=== PATIENT | female | born 1965 | race Caucasian/White ===

== ENCOUNTER 2019-05-23 19:25 | Inpatient (IN) ==
[2019-05-23 20:00] LABS: Basophils % 0.5 % (0.0-0.8); Eosinophils # 0.2 10*3/uL (0.0-0.87); Eosinophils % 3.2 % (0.00-10.9); Hematocrit 39.4 VOL% (35.7-47.0); Hemoglobin 12.9 GM/DL (12.0-16.0); Immature Granulocytes % 0.3 %; Immature Granulocytes Absolute 0.02 #; Lymphocytes # 2.3 10*3/uL (1.4-4.0); Mean Corpuscular HGB Conc 32.7 GM/DL (32-36); Mean Platelet Volume 9.5 FL (9.6-12.0); Monocytes % 8.4 % (1.7-12.7); Neutrophils % 56.6 % (38.7-73.9); Platelet Count 263 T/CUMM (130-400); Red Blood Count 4.58 MC/CUMM (3.8-5.5); Red Cell Distribution Width 15.4 % (9.3-17.3); White Blood Count 7.5 T/CUMM (4-12)
[2019-05-23] MEDS ORDERED: VANCOMYCIN INJ 1,000 MG in SODIUM CHLORIDE 0.9% 250 ML IV STA (20:02)
[2019-05-23 20:31] LABS: Alanine Aminotransferase 30 U/L (13-56); Albumin 3.4 G/DL (3.4-5.0); Alkaline Phosphatase 94 U/L (45-117); Aspartate Amino Transferase 23 U/L (0-37); Bilirubin,Total < 0.39 MG/DL (0.2-1.0); Blood Urea Nitrogen 16 MG/DL (7-18); Calcium 8.2 MG/DL (8.5-10.1); Estimated Glom Filtration Rate 84 ML/MIN; Glucose 112 MG/DL (74-106); Osmolality,Calculated 276.7 MOS/KG (273-304); Total Protein 6.6 G/DL (6.4-8.3)
[2019-05-23] MEDS ORDERED: ONDANSETRON 4 MG/2 ML VIAL IV ONE (21:14)
[2019-05-23] MEDS ORDERED: MORPHINE 4 MG/1 ML VIAL IV STA (21:14)
[2019-05-23] MEDS ORDERED: MORPHINE 4 MG/1 ML VIAL SUBCUT PRN (23:29)
[2019-05-23] MEDS ORDERED: ALBUTEROL 1.25 MG/3 ML NEB RESP TX PRN (23:29)
[2019-05-24] MEDS: ONDANSETRON 4 MG/2 ML VIAL IV PRN ×5 (00:40→22:28)
[2019-05-24] MEDS: PIPERACILLIN/TAZOBACTAM 3,375 MG in SODIUM CHLORIDE 0.9% 100 ML IV SCH ×2 (00:44→12:12)
[2019-05-24] MEDS: NICOTINE 14 MG/24 HR PATCH TRANSDERM SCH (01:02)
[2019-05-24] MEDS: MORPHINE 4 MG/1 ML VIAL IV PRN ×5 (01:16→22:27)
[2019-05-24 04:45] LABS: Basophils % 0.7 % (0.0-0.8); Eosinophils # 0.3 10*3/uL (0.0-0.87); Eosinophils % 5.2 % (0.00-10.9); Hematocrit 34.7 VOL% (35.7-47.0); Hemoglobin 11.1 GM/DL (12.0-16.0); Immature Granulocytes % 0.5 %; Immature Granulocytes Absolute 0.03 #; Lymphocytes # 2.1 10*3/uL (1.4-4.0); Lymphocytes % 36.7 % (21.3-54.2); Mean Corpuscular Volume 86.3 FL (87-102); Mean Platelet Volume 9.6 FL (9.6-12.0); Monocytes % 9.4 % (1.7-12.7); Neutrophils % 47.5 % (38.7-73.9); Platelet Count 240 T/CUMM (130-400); Red Blood Count 4.02 MC/CUMM (3.8-5.5); Red Cell Distribution Width 15.4 % (9.3-17.3); White Blood Count 5.6 T/CUMM (4-12)
[2019-05-24 05:09] LABS: Albumin 2.9 G/DL (3.4-5.0); Bilirubin,Total 0.5 MG/DL (0.2-1.0); Calcium 8.5 MG/DL (8.5-10.1); Osmolality,Calculated 286.8 MOS/KG (273-304)
[2019-05-24] MEDS ORDERED: VANCOMYCIN INJ 1,750 MG in SODIUM CHLORIDE 0.9% 500 ML IV SCH (08:00)
[2019-05-24] MEDS: PANTOPRAZOLE 40 MG TABLET PO SCH (08:56)
[2019-05-24] MEDS: MONTELUKAST 10 MG TABLET PO SCH (08:56)
[2019-05-24] MEDS: FLUoxetine 20 MG CAPSULE PO SCH (08:57)
[2019-05-24] MEDS ORDERED: LOSARTAN 50 MG TABLET PO SCH (09:00)
[2019-05-24] MEDS: RIVAROXABAN PO SCH ×2 (10:16→17:41)
[2019-05-24] MEDS: ceFAZolin 1,000 MG in SYRINGE 1 EACH IV SCH (17:35)
[2019-05-24] MEDS: FLUTICASONE 50 MCG NASAL SPRAY 16 GM BOTTLE BOTH NARES SCH (20:31)
[2019-05-25] MEDS: ceFAZolin 1,000 MG in SYRINGE 1 EACH IV SCH ×4 (00:44→17:51)
[2019-05-25 05:02] LABS: Basophils % 0.6 % (0.0-0.8); Eosinophils # 0.3 10*3/uL (0.0-0.87); Eosinophils % 5.7 % (0.00-10.9); Hematocrit 36.4 VOL% (35.7-47.0); Hemoglobin 11.5 GM/DL (12.0-16.0); Immature Granulocytes % 0.4 %; Immature Granulocytes Absolute 0.02 #; Lymphocytes # 2.1 10*3/uL (1.4-4.0); Lymphocytes % 40.2 % (21.3-54.2); Mean Corpuscular HGB Conc 31.6 GM/DL (32-36); Mean Corpuscular Volume 87.3 FL (87-102); Mean Platelet Volume 9.5 FL (9.6-12.0); Monocytes % 9.9 % (1.7-12.7); Neutrophils % 43.2 % (38.7-73.9); Platelet Count 242 T/CUMM (130-400); Red Blood Count 4.17 MC/CUMM (3.8-5.5); Red Cell Distribution Width 15.8 % (9.3-17.3); White Blood Count 5.3 T/CUMM (4-12)
[2019-05-25 05:27] LABS: Calcium 8.6 MG/DL (8.5-10.1); Osmolality,Calculated 287.8 MOS/KG (273-304)
[2019-05-25] MEDS: PANTOPRAZOLE 40 MG TABLET PO SCH (08:20)
[2019-05-25] MEDS: NICOTINE 14 MG/24 HR PATCH TRANSDERM SCH (08:20)
[2019-05-25] MEDS: MONTELUKAST 10 MG TABLET PO SCH (08:20)
[2019-05-25] MEDS: FLUoxetine 20 MG CAPSULE PO SCH (08:20)
[2019-05-25] MEDS: RIVAROXABAN PO SCH ×2 (08:22→17:51)
[2019-05-25] MEDS: ONDANSETRON 4 MG/2 ML VIAL IV PRN ×2 (10:11→22:17)
[2019-05-25] MEDS ORDERED: FUROSEMIDE 40 MG TABLET PO ONE (14:10)
[2019-05-25] MEDS: POLYETHYLENE GLYCOL POWDER 17 GM PACK PO SCH (14:25)
[2019-05-25] MEDS: FLUTICASONE 50 MCG NASAL SPRAY 16 GM BOTTLE BOTH NARES SCH (20:36)
[2019-05-25] MEDS: MORPHINE 4 MG/1 ML VIAL IV PRN (22:14)
[2019-05-26] MEDS: ceFAZolin 1,000 MG in SYRINGE 1 EACH IV SCH ×2 (00:38→09:04)
[2019-05-26] MEDS: MORPHINE 4 MG/1 ML VIAL IV PRN (00:54)
[2019-05-26 06:24] LABS: Basophils % 0.5 % (0.0-0.8); Eosinophils # 0.3 10*3/uL (0.0-0.87); Eosinophils % 5.5 % (0.00-10.9); Hematocrit 35.7 VOL% (35.7-47.0); Hemoglobin 11.5 GM/DL (12.0-16.0); Immature Granulocytes % 0.4 %; Immature Granulocytes Absolute 0.02 #; Lymphocytes # 2.3 10*3/uL (1.4-4.0); Lymphocytes % 41.6 % (21.3-54.2); Mean Corpuscular HGB Conc 32.2 GM/DL (32-36); Mean Corpuscular Volume 86.2 FL (87-102); Mean Platelet Volume 9.8 FL (9.6-12.0); Monocytes % 7.7 % (1.7-12.7); Neutrophils % 44.3 % (38.7-73.9); Platelet Count 256 T/CUMM (130-400); Red Blood Count 4.14 MC/CUMM (3.8-5.5); Red Cell Distribution Width 15.5 % (9.3-17.3); White Blood Count 5.6 T/CUMM (4-12)
[2019-05-26 06:45] LABS: Calcium 8.9 MG/DL (8.5-10.1); Osmolality,Calculated 287.7 MOS/KG (273-304)
[2019-05-26 09:04] VITALS: BP 121/63
[2019-05-26] MEDS: FLUoxetine 20 MG CAPSULE PO SCH (09:04)
[2019-05-26] MEDS: MONTELUKAST 10 MG TABLET PO SCH (09:04)
[2019-05-26] MEDS: NICOTINE 14 MG/24 HR PATCH TRANSDERM SCH (09:04)
[2019-05-26] MEDS: PANTOPRAZOLE 40 MG TABLET PO SCH (09:04)
[2019-05-26] MEDS: POLYETHYLENE GLYCOL POWDER 17 GM PACK PO SCH (09:04)
[2019-05-26] MEDS: RIVAROXABAN PO SCH (09:05)
== END 2019-05-26 11:20 | disposition home or self-care (01) | DRG 300 ==
LOC: N.ED 19:25 → N.EDINP 21:57 → N.3E 22:59
PROVIDERS: ADMIT Internal Medicine; ATTEND Internal Medicine

== ENCOUNTER 2020-02-11 05:27 | Inpatient (IN) ==
[2020-02-11] MEDS ORDERED: VANCOMYCIN INJ 1,000 MG in SODIUM CHLORIDE 0.9% 250 ML IV ONE (05:28)
[2020-02-11] MEDS ORDERED: LACTATED RINGERS 1,000 ML IV SCH (05:30)
[2020-02-11] MEDS ORDERED: VANCOMYCIN 1,000 MG VIAL ONE (05:47)
[2020-02-11] MEDS ORDERED: ceFAZolin 1,000 MG VIAL ONE (05:47)
[2020-02-11] MEDS ORDERED: ACETAMINOPHEN 500 MG TABLET PO STA (06:37)
[2020-02-11] MEDS ORDERED: GABAPENTIN 400 MG CAPSULE PO ONE (06:37)
[2020-02-11] MEDS ORDERED: FAMOTIDINE 20 MG TABLET PO STA (06:38)
[2020-02-11] MEDS ORDERED: DIAZEPAM 5 MG TABLET PO ONE (06:38)
[2020-02-11] MEDS ORDERED: ACETAMINOPHEN 500 MG TABLET ONE (06:46)
[2020-02-11] MEDS ORDERED: FAMOTIDINE 20 MG TABLET ONE (06:46)
[2020-02-11] MEDS ORDERED: TRANEXAMIC ACID 1,000 MG/10 ML VIAL ONE ×2 (06:48→09:39)
[2020-02-11] MEDS ORDERED: BACITRACIN OINT 0.9 GM PACK TOP ONE (06:48)
[2020-02-11] MEDS ORDERED: SCOPOLAMINE 1.5 MG PATCH TRANSDERM STA (06:52)
[2020-02-11] MEDS ORDERED: ROPIVACAINE 0.5% 30 ML VIAL ONE (07:32)
[2020-02-11] MEDS ORDERED: DEXAMETHASONE 4 MG/1 ML VIAL ONE ×2 (07:32→10:40)
[2020-02-11] MEDS ORDERED: FLUTICASONE FUROATE 50 MCG INH PRN (08:43)
[2020-02-11] MEDS ORDERED: ALBUTEROL 2.5 MG/3 ML NEB RESP TX PRN (08:43)
[2020-02-11] MEDS ORDERED: MAGNESIUM HYDROXIDE SUSP 30 ML UDCUP PO PRN (08:44)
[2020-02-11] MEDS ORDERED: diphenhydrAMINE CAP 25 MG CAPSULE PO PRN (08:44)
[2020-02-11] MEDS ORDERED: ZALEPLON 5 MG CAPSULE PO PRN (08:44)
[2020-02-11] MEDS ORDERED: ONDANSETRON 4 MG/2 ML VIAL IV PRN ×2 (08:44→10:48)
[2020-02-11] MEDS ORDERED: MORPHINE 4 MG/1 ML VIAL IV PRN ×2 (08:44)
[2020-02-11] MEDS ORDERED: BETAMETH SODIUM PHOS/ACETATE 30 MG/5 ML VIAL ONE (08:58)
[2020-02-11] MEDS ORDERED: BUPIVACAINE MPF 0.25% 30 ML VIAL ONE (08:59)
[2020-02-11] MEDS ORDERED: propofoL 200 MG/20 ML VIAL IV ONE (10:38)
[2020-02-11] MEDS ORDERED: SEVOFLURANE 1 UNIT/15 MINUTE INH ONE (10:39)
[2020-02-11] MEDS ORDERED: BUPIVACAINE SPINAL 0.75% 2 ML AMP SPINAL ONE (10:39)
[2020-02-11] MEDS ORDERED: fentaNYL 100 MCG/2 ML VIAL ONE (10:39)
[2020-02-11] MEDS ORDERED: MIDAZOLAM 2 MG/2 ML VIAL ONE ×2 (10:39)
[2020-02-11] MEDS ORDERED: PHENYLEPHRINE 1 MG/10 ML SYRINGE IV ONE (10:40)
[2020-02-11] MEDS ORDERED: KETOROLAC 30 MG/1 ML VIAL ONE (10:40)
[2020-02-11] MEDS ORDERED: ePHEDrine 50 MG/ML VIAL ONE (10:40)
[2020-02-11] MEDS ORDERED: ETOMIDATE 40 MG/20 ML VIAL IV ONE (10:40)
[2020-02-11] MEDS ORDERED: ONDANSETRON 4 MG/2 ML VIAL ONE ×2 (10:40→10:43)
[2020-02-11] MEDS ORDERED: GLYCOPYRROLATE 0.4 MG/2 ML VIAL ONE (10:40)
[2020-02-11] MEDS ORDERED: ROCURONIUM 100 MG/10 ML VIAL IV ONE (10:41)
[2020-02-11] MEDS ORDERED: NEOSTIGMINE 10 MG/10 ML VIAL ONE (10:41)
[2020-02-11] MEDS ORDERED: LACTATED RINGERS 1,000 ML IV ONE (10:41)
[2020-02-11] MEDS ORDERED: SODIUM CHLORIDE 0.9% 250 ML IV ONE (10:41)
[2020-02-11] MEDS ORDERED: LIDOCAINE 2% 5 ML VIAL ONE (10:41)
[2020-02-11] MEDS ORDERED: HYDROmorphone 2 MG/1 ML VIAL ONE (10:43)
[2020-02-11] MEDS ORDERED: MEPERIDINE 25 MG/1 ML VIAL IV PRN (10:48)
[2020-02-11] MEDS ORDERED: HYDROmorphone 2 MG/1 ML VIAL IV PRN (10:48)
[2020-02-11] MEDS ORDERED: DEXMEDETOMIDINE 200 MCG/2 ML VIAL ONE (10:50)
[2020-02-11] MEDS ORDERED: LORazepam 2 MG/1 ML VIAL IV PRN (10:50)
[2020-02-11 10:53] LABS: Apearance,Urine CLOUDY (Clear); Bacteria,Urine Occasional /HPF (Few); Bilirubin,Urine Negative (Negative); Blood, Urine Negative (Negative); Glucose,Urine (UA) Negative (Negative); Hyaline Casts,Urine 7 /LPF (0-3); Ketones,Urine Negative (Negative); Mucus,Urine Many /LPF (Occasional); Nitrite,Urine Negative (Negative); Protein,Urine Negative; RBC,Urine 1 /HPF (0-4); Squamous Epithelial Cell,Urine Moderate /HPF (0-10); Urine Color Yellow (Yellow); Urine Specific Gravity 1.028 (1.001-1.035); Urine Urobilinogen < 2.0 EU/DL (0.2-1.0); WBC,Urine 1 /HPF (0-6)
[2020-02-11] MEDS ORDERED: LORazepam 2 MG/1 ML VIAL ONE (11:04)
[2020-02-11] MEDS: LACTATED RINGERS 1,000 ML IV SCH ×2 (15:27→20:08)
[2020-02-11] MEDS: MONTELUKAST 10 MG TABLET PO SCH (15:32)
[2020-02-11] MEDS: DOCUSATE SODIUM 100 MG CAPSULE PO SCH ×2 (15:32→20:08)
[2020-02-11] MEDS: PANTOPRAZOLE 40 MG TABLET PO SCH (15:32)
[2020-02-11] MEDS: LOSARTAN 50 MG TABLET PO SCH (15:32)
[2020-02-11] MEDS: GABAPENTIN 400 MG CAPSULE PO SCH (15:32)
[2020-02-11] MEDS: KETOROLAC 30 MG/1 ML VIAL IV SCH ×3 (15:33→20:10)
[2020-02-11] MEDS: ceFAZolin 2,000 MG in PREMIX 1 EACH IV SCH ×2 (15:37→20:20)
[2020-02-11] MEDS: FLUTICASONE 50 MCG NASAL SPRAY 16 GM BOTTLE BOTH NARES SCH (20:10)
[2020-02-11] MEDS: RIVAROXABAN 10 MG TABLET PO SCH (20:12)
[2020-02-12] MEDS: ALPRAZolam 0.5 MG TABLET PO PRN ×2 (00:08→23:38)
[2020-02-12] MEDS: LACTATED RINGERS 1,000 ML IV SCH (00:10)
[2020-02-12] MEDS: KETOROLAC 30 MG/1 ML VIAL IV SCH (02:14)
[2020-02-12 05:07] LABS: Hematocrit 31.5 VOL% (35.7-47.0); Hemoglobin 10.4 GM/DL (12.0-16.0); Immature Granulocytes % 0.3 %; Immature Granulocytes Absolute 0.03 #; Lymphocytes # 0.9 10*3/uL (1.4-4.0); Lymphocytes % 8.5 % (21.3-54.2); Mean Corpuscular Volume 86.1 FL (87-102); Monocytes % 2.3 % (1.7-12.7); Neutrophils % 88.9 % (38.7-73.9); Platelet Count 210 T/CUMM (130-400); Red Blood Count 3.66 MC/CUMM (3.8-5.5); Red Cell Distribution Width 14.6 % (9.3-17.3); White Blood Count 10.4 T/CUMM (4-12)
[2020-02-12 05:30] LABS: Calcium 8.4 MG/DL (8.5-10.1); Osmolality,Calculated 280.5 MOS/KG (273-304)
[2020-02-12] MEDS ORDERED: DEXTROSE 50% 25 GM/50 ML VIAL IV PRN (06:33)
[2020-02-12] MEDS ORDERED: GLUCAGON 1 MG VIAL IM PRN (06:33)
[2020-02-12] MEDS: INSULIN LISPRO 100 UNIT/ML SUBCUT SCH ×4 (08:04→20:52)
[2020-02-12] MEDS: GABAPENTIN 400 MG CAPSULE PO SCH (08:42)
[2020-02-12] MEDS: DOCUSATE SODIUM 100 MG CAPSULE PO SCH ×2 (08:42→20:51)
[2020-02-12] MEDS: PANTOPRAZOLE 40 MG TABLET PO SCH (08:42)
[2020-02-12] MEDS: CELECOXIB 200 MG CAPSULE PO SCH (08:42)
[2020-02-12] MEDS: LOSARTAN 50 MG TABLET PO SCH (08:43)
[2020-02-12] MEDS: FLUoxetine 20 MG CAPSULE PO SCH (08:43)
[2020-02-12] MEDS: MONTELUKAST 10 MG TABLET PO SCH (08:43)
[2020-02-12] MEDS: RIVAROXABAN 10 MG TABLET PO SCH (08:43)
[2020-02-12] MEDS: PHENAZOPYRIDINE 95 MG TABLET PO SCH ×2 (11:42→17:40)
[2020-02-12] MEDS: FLUTICASONE 50 MCG NASAL SPRAY 16 GM BOTTLE BOTH NARES SCH (20:53)
[2020-02-13 04:14] LABS: Hematocrit 28.7 VOL% (35.7-47.0); Hemoglobin 9.1 GM/DL (12.0-16.0); Immature Granulocytes % 0.5 %; Immature Granulocytes Absolute 0.06 #; Lymphocytes # 1.8 10*3/uL (1.4-4.0); Lymphocytes % 15.8 % (21.3-54.2); Mean Corpuscular HGB Conc 31.7 GM/DL (32-36); Mean Corpuscular Volume 88.9 FL (87-102); Mean Platelet Volume 9.9 FL (9.6-12.0); Monocytes % 5.3 % (1.7-12.7); Neutrophils % 78.4 % (38.7-73.9); Platelet Count 191 T/CUMM (130-400); Red Blood Count 3.23 MC/CUMM (3.8-5.5); White Blood Count 11.4 T/CUMM (4-12)
[2020-02-13] MEDS: INSULIN LISPRO 100 UNIT/ML SUBCUT SCH ×4 (08:37→20:58)
[2020-02-13] MEDS: PANTOPRAZOLE 40 MG TABLET PO SCH (09:46)
[2020-02-13] MEDS: FLUoxetine 20 MG CAPSULE PO SCH (09:46)
[2020-02-13] MEDS: PHENAZOPYRIDINE 95 MG TABLET PO SCH ×3 (09:46→17:30)
[2020-02-13] MEDS: MONTELUKAST 10 MG TABLET PO SCH (09:47)
[2020-02-13] MEDS: GABAPENTIN 400 MG CAPSULE PO SCH (09:47)
[2020-02-13] MEDS: LOSARTAN 50 MG TABLET PO SCH (09:47)
[2020-02-13] MEDS: CELECOXIB 200 MG CAPSULE PO SCH (09:47)
[2020-02-13] MEDS: DOCUSATE SODIUM 100 MG CAPSULE PO SCH ×2 (09:47→20:57)
[2020-02-13] MEDS: RIVAROXABAN 10 MG TABLET PO SCH (09:47)
[2020-02-13] MEDS: metFORMIN 500 MG TABLET PO SCH (12:07)
[2020-02-13] MEDS: FLUTICASONE 50 MCG NASAL SPRAY 16 GM BOTTLE BOTH NARES SCH (20:58)
[2020-02-14] MEDS: ALPRAZolam 0.5 MG TABLET PO PRN (00:42)
[2020-02-14 05:10] LABS: Basophils % 0.1 % (0.0-0.8); Eosinophils # 0.1 10*3/uL (0.0-0.87); Eosinophils % 0.8 % (0.00-10.9); Hematocrit 27.7 VOL% (35.7-47.0); Hemoglobin 8.7 GM/DL (12.0-16.0); Immature Granulocytes % 0.3 %; Immature Granulocytes Absolute 0.03 #; Lymphocytes % 33.9 % (21.3-54.2); Mean Corpuscular HGB Conc 31.4 GM/DL (32-36); Mean Corpuscular Volume 89.4 FL (87-102); Mean Platelet Volume 9.9 FL (9.6-12.0); Monocytes % 5.3 % (1.7-12.7); Neutrophils % 59.6 % (38.7-73.9); Platelet Count 186 T/CUMM (130-400); Red Cell Distribution Width 15.2 % (9.3-17.3); White Blood Count 8.8 T/CUMM (4-12)
[2020-02-14] MEDS: INSULIN LISPRO 100 UNIT/ML SUBCUT SCH ×2 (07:55→11:39)
[2020-02-14] MEDS: GABAPENTIN 400 MG CAPSULE PO SCH (09:22)
[2020-02-14] MEDS: FLUoxetine 20 MG CAPSULE PO SCH (09:22)
[2020-02-14] MEDS: DOCUSATE SODIUM 100 MG CAPSULE PO SCH (09:23)
[2020-02-14] MEDS: MONTELUKAST 10 MG TABLET PO SCH (09:23)
[2020-02-14] MEDS: PHENAZOPYRIDINE 95 MG TABLET PO SCH (09:23)
[2020-02-14] MEDS: metFORMIN 500 MG TABLET PO SCH (09:23)
[2020-02-14] MEDS: RIVAROXABAN 10 MG TABLET PO SCH (09:24)
[2020-02-14] MEDS: PANTOPRAZOLE 40 MG TABLET PO SCH (09:24)
[2020-02-14] MEDS: CELECOXIB 200 MG CAPSULE PO SCH (09:24)
[2020-02-14] MEDS: LOSARTAN 50 MG TABLET PO SCH (09:24)
[2020-02-14 11:28] VITALS: BP 90/69
== END 2020-02-14 13:59 | disposition home health service (06) | DRG 470 ==
LOC: N.SDSINP 05:27 → N.3E 12:48
PROVIDERS: ADMIT Orthopaedic Surgery; ATTEND Orthopaedic Surgery